=== PATIENT | male | born 1975 ===

== ENCOUNTER 2018-06-08 07:46 | Day surgery (SDC) | payer BC ==
[~2018-06-08] VITALS: Ht 182.9 cm; Wt 80.7 kg
[2018-06-08] VITALS (7 sets, daily range): BP systolic 104–125; BP diastolic 52–70
--- NOTE | 2018-06-08 08:06 | Anethesia Preoperative Eval ---
Anesthesia Pre-op PMH/ROS General Date of Evaluation: Jun 08, 2018 Time of Evaluation: 08:02 Anesthesiologist: isrrael ASA Score: ASA 2 Mallampati Score Class I : Soft palate, uvula, fauces, pillars visible Class II: Soft palate, uvula, fauces visible Class III: Soft palate, base of uvula visible Class IV: Only hard plate visible Mallampati Classification: Class II Surgeon: lan Diagnosis: colonic polyps Surgical Procedure: colonoscopy Anesthesia History: none Social History: smoking - nonsmoker Family History: no anesthesia problems Allergies: Coded Allergies: No Known Allergies (Unverified , 06/08/18) Medications: see eMAR Patient NPO?: Yes Past Medical History Cardiovascular: Reports: arrhythmia - bradycardia Gastrointestinal/Genitourinary: Reports: other - colonic polyps Anesthesia Pre-op Phys. Exam Physician Exam Last Vital Signs Date Time Temp Pulse Resp B/P (MAP) Pulse Ox O2 Delivery O2 Flow Rate FiO2 06/08/18 08:26 Room Air 06/08/18 08:23 97.1 46 20 125/70 99 Constitutional: NAD Neurologic: CN 2-12 intact Cardiovascular: RRR Respiratory: CTA Gastrointestinal: S/NT/ND Airway Exam Mallampati Score: Class II MO: full Neck: flexible TMD: 2fb ROM: full Teeth: intact Anesthesia Pre-op A/P Risk Assessment & Plan Assessment: asa2 Plan: mac Status Change Before Surgery: No Pre-Antibiotics Drug: Lisset Winter MD Jun 08, 2018 08:06
[2018-06-08] MEDS ORDERED: PROSCAR5 MG ORAL (08:20)
[2018-06-08] MEDS ORDERED: DiphenhydrAMINE 50mg/ml Inj IVP PRN (08:30)
[2018-06-08] MEDS ORDERED: fentaNYL 100 mcg/2 mL IV PRN (08:30)
[2018-06-08] MEDS ORDERED: Midazolam 2mg/2ml Inj IVP PRN (08:30)
[2018-06-08] MEDS ORDERED: Atropine Inj 1mg/10ml Syr IV PRN (08:30)
[2018-06-08] MEDS ORDERED: LR 1000ml 1,000 ML IVLG SCH (08:31)
--- NOTE | 2018-06-08 08:35 | NUR ---
IV LR WAS STARTED BY DANIEL VILLAFUERTE,OPS RN, NO S/S OF INFILTRATION.
[2018-06-08] MEDS ORDERED: Lidocaine 1% MPF 10mg/ml 5ml ONE (09:00)
[2018-06-08] MEDS ORDERED: LR 1000ml ONE (09:00)
[2018-06-08] MEDS ORDERED: Propofol 200mg/20ml IV ONE (09:00)
[2018-06-08] MEDS ORDERED: Atropine Sulfate 0.4mg/ml inj ONE (09:00)
--- NOTE | 2018-06-08 09:14 | Pre-Procedure Note/Attestation ---
Pre-Procedure Note/Attestation Complete Prior to Procedure Planned Procedure: not applicable Procedure Narrative: colonoscopy Indications for Procedure Pre-Operative Diagnosis: BRBPR Attestation I attest that I discussed the nature of the procedure; its benefits; risks and complications; and alternatives (and the risks and benefits of such alternatives ), prior to the procedure, with the patient (or the patient's legal jewelry sales representative). I attest that, if there was a reasonable possibility of needing a blood transfusion, the patient (or the patient's legal jewelry sales representative) was given the [facility] standardized written summary, pursuant to the [place] Blood Safety Act ([place] Health and Safety Code # 1645, as amended). I attest that I re-evaluated the patient just prior to the surgery and that there has been no change in the patient's H&P, except as documented below: Mag Masters MD Jun 08, 2018 09:14
--- NOTE | 2018-06-08 09:15 | Short Stay Surgery H&P ---
History of Present Illness History of Present Illness Chief Complaint see typed H&P HPI Guero Lagunas is a 42 year old male who was admitted on for Polyps Patient History Allergies: Coded Allergies: No Known Allergies (Unverified , 06/08/18) Medication History Scheduled Finasteride* (Proscar*), 5 MG ORAL DAILY, (Reported) Physical Exam Vital Signs Last Vital Signs Date Time Temp Pulse Resp B/P (MAP) Pulse Ox O2 Delivery O2 Flow Rate FiO2 06/08/18 08:26 Room Air 06/08/18 08:23 97.1 46 20 125/70 99 Plan Attestation Are the patient's medical conditions optimized for surgery? Mag Masters MD Jun 08, 2018 09:15
--- NOTE | 2018-06-08 09:38 | Endoscopy Procedure Note ---
Endoscopy Procedure Note General Indication for Procedure: BRB Procedures Performed: colonoscopy Operative Findings/Diagnosis: Rhoid, int ,mild Specimen: none Pt Tolerated Procedure Well: Yes Estimated Blood Loss: none Anesthesia Anesthesiologist: Natanael Smith Anesthesia: MAC, moderate sedation Medications Medication Given: see anesthesia record Inserted Devices Implant(s) used?: No GI Core Measures 50 yrs or older w/o bx or poly: Not Applicable 10yrs. F/U not recommended: Not Applicable If not recommended, why?: Mag Masters MD Jun 08, 2018 09:38
--- NOTE | 2018-06-08 09:39 | Brief Operative Note ---
Immediate Post Operative Note Operative Note Chief Complaint: BRB Pre-op Diagnosis: BRBPR Procedure: Colon Post-op Diagnosis: Rhoid, mild, int Surgeon: Sonam Anesthesiologist: Natanael Smith Specimen: none Complications: none Condition: stable Fluids: recorded Estimated Blood Loss: none Drains: none Implant(s) used?: No Mag Masters MD Jun 08, 2018 09:39
--- NOTE | 2018-06-08 10:10 | Immediate Post-Op Evaluation ---
Immediate Post-Op Evalulation Immediate Post-Op Evalulation Procedure: colonoscopy Date of Evaluation: Jun 08, 2018 Time of Evaluation: 10:00 IV Fluids: 400ml lr Blood Products: none Estimated Blood Loss: negligible Blood Pressure Systolic: 109 Blood Pressure Diastolic: 52 Pulse Rate: 56 Respiratory Rate: 18 O2 Sat by Pulse Oximetry: 100 Temperature (Fahrenheit): 97.2 Pain Score (1-10): 0 Nausea: No Vomiting: No Complications none Patient Status: awake, reacts, patent Hydration Status: adequate Drug: Lisset Winter MD Jun 08, 2018 10:10
--- NOTE | 2018-06-08 10:11 | 48 Hour Post Anesthesia Eval ---
Post Anesthesia Evaluation Procedure: colonoscopy Date of Evaluation: Jun 08, 2018 Time of Evaluation: 10:02 Blood Pressure Systolic: 110 0: 53 Pulse Rate: 56 Respiratory Rate: 18 Temperature (Fahrenheit): 97.2 O2 Sat by Pulse Oximetry: 100 Airway: patent Nausea: No Vomiting: No Pain Intensity: 0 Hydration Status: adequate Cardiopulmonary Status: stable Mental Status/LOC: patient returned to baseline Post-Anesthesia Complications: none Follow-up care needed: N/A Lisset Kurtz MD Jun 08, 2018 10:11
--- NOTE | 2018-06-09 00:31 | Procedure Note ---
DATE OF PROCEDURE: 06/08/2018 GASTROENTEROLOGY PROCEDURE REPORT PROCEDURE: Colonoscopy. SURGEON: Mag Masters M.D. ANESTHESIA: Please see the separate anesthesiology notes for details. PRE-ENDOSCOPIC DIAGNOSIS: Hematochezia. POST-ENDOSCOPIC DIAGNOSIS: Mild internal hemorrhoids. DESCRIPTION OF PROCEDURE: The procedure, its risks, indications, alternatives, and possible complications were explained to the patient and informed consent was obtained. The patient was then sedated in the left lateral decubitus position and a rectal exam was done, which was unremarkable. The colonoscope was then introduced into the rectum and advanced to the terminal ileum. The terminal ileum, mucosa as well as the colonic mucosa were all normal. Retroflexed view of the rectum revealed mild internal hemorrhoids. The colonoscope was removed. The patient was sent to recovery in good condition. COMPLICATIONS: None. RECOMMENDATIONS: 1. Resume oral diet. 2. High fiber intake. 3. If bleeding becomes recurrent issue then colorectal surgery to be consultation for hemorrhoidal treatment. Mag Masters M.D. DR: VAMSI JOB#: [id number] CC: Mag Masters M.D.; Fax#: [phone]
== END 2018-06-08 10:50 | disposition home or self-care (01) ==
LOC: GAS 07:46
DX: K92.1 Melena (principal); K64.8 Other hemorrhoids; Z86.010 Personal history of colon polyps; I25.10 Atherosclerotic heart disease of native coronary artery without angina pectoris; R00.1 Bradycardia, unspecified; Z85.810 Personal history of malignant neoplasm of tongue
CPT/HCPCS: 45378; J0461; J2704; 94003; 94150